=== PATIENT | female | born 2000 | race Caucasian/White ===

== ENCOUNTER 2024-08-19 12:25 | Emergency (ER) | payer SELFPAY | END 2024-08-19 12:38 | disposition left against medical advice (07) | LOC: ED 12:25 | DX: Z46.89 Encounter for fitting and adjustment of other specified devices (principal); Z53.21 Procedure and treatment not carried out due to patient leaving prior to being seen by health care provider ==

== ENCOUNTER 2024-09-21 21:49 | Emergency (ER) | payer MEDICAID ==
[2024-09-21] MEDS ORDERED: AMOX-CLAV 875-1 EACH PO (22:40)
[2024-09-21] MEDS ORDERED: Amoxicillin/Clavulanate Pota 875 MG TAB PO ONE (22:45)
== END 2024-09-21 23:05 | disposition home or self-care (01) ==
LOC: ED 21:49
DX: H66.93 Otitis media, unspecified, bilateral (principal)